=== PATIENT | female | born 1960 | race Caucasian/White ===

== ENCOUNTER → 2025-05-03 10:17 | Outpatient (REF) | payer MEDICARE, SELFPAY ==
[2025-05-03 12:19] LABS: Glycohemoglobin (HgbA1c) 7.7 % (4.0-5.6)
[2025-05-03 12:21] LABS: ALT (SGPT) < 10 U/L (0-35); AST (SGOT) 20 U/L (14-36); Albumin 3.4 g/dl (3.5-5.0); Alkaline Phosphatase 100 U/L (38-126); Blood Urea Nitrogen 24 mg/dl (7-17); Calcium 8.7 mg/dl (8.4-10.2); Carbon Dioxide 30 mmol/L (22-30); Chloride 107 mmol/L (98-107); Glucose 115 mg/dl (70-99); HDL Cholesterol 42 mg/dl; LDL Cholesterol, Calculated 93 mg/dl; Potassium 4.9 mmol/L (3.5-5.1); Sodium 141 mmol/L (135-145); Total Protein 6.3 g/dl (6.3-8.2); Very Low Density Lipoprotein 32 mg/dl (0-30); eGFR 55.42
[2025-05-03 12:50] LABS: TSH 3.65 uIU/ml (0.47-4.68)
== END ==
LOC: REG 10:17
PROVIDERS: ATTENDING PHYSICIAN Nurse Practitioner Family; FAMILY PHYSICIAN Family Medicine
DX: E11.65 Type 2 diabetes mellitus with hyperglycemia (principal); E03.9 Hypothyroidism, unspecified
CPT/HCPCS: 36415; 80053; 80061; 83036; 84439; 84443